=== PATIENT | male | born 1960 | race Caucasian/White ===

== ENCOUNTER 2021-01-27 21:21 | Inpatient (IN) | payer MEDICAID, OTHER ==
[~2021-01-27] VITALS: Ht 190.5 cm; Wt 84.7 kg
[2021-01-27 21:25] VITALS: BP 162/81
--- NOTE | 2021-01-27 21:29 | NUR ---
pt. arrived on unit by EMS from [facility] at 2119. Pt. is A&Ox4, on room air and is very pleasant. Call light is within reach with bed in lowest position. Pt. is able to ambulate ad rosibel to the bathroom without any difficulty. Will continue to monitor.
[2021-01-27] MEDS ORDERED: ONDANSETRON PF 4 MG/2 ML VIAL. IVP PRN (22:30)
[2021-01-27] MEDS ORDERED: ATOR20TA PO (22:34)
[2021-01-27] MEDS ORDERED: ASPI-630 PO (22:34)
[2021-01-27] MEDS ORDERED: CYCL10TA2 PO (22:34)
[2021-01-27 23:00] VITALS: BP 116/53
[2021-01-28] MEDS: PIPERACILLIN/TAZOBACTAM 3.375 GM in IV NORMAL SALINE 50ML 50 ML IV SCH ×4 (00:31→17:06)
[2021-01-28] MEDS: VANCOMYCIN PER PHARMACY MC PRN ×2 (02:04→14:32)
--- NOTE | 2021-01-28 02:05 | NUR ---
Pharmacy Vancomycin Dosing Note S:Consulted to monitor and dose vancomycin started 01/27/21. O:ABBEY MARISCAL is a 60 year old M with Osteomyelitis . Height: 6 feet, 3 inches Weight: 83.9 kg [place] Body Weight: 84.50 Adjusted Body Weight: 84.26 Dosing Weight: Actual Other Antibiotics: ZOSYN 3.375 GM Q6H LABS: Last BUN: 7 Last Creatinine: 1 Creatinine Clearance: 99 mL/min Last WBC: 11.5 Last Procalcitonin: Tmax (past 24 hours): Microbiology: I/O: Drug Levels: Last level: on at Last dose given 01/27/21 at 1930 Vancomycin Dosing: Loading Dose: 2000 mg x1 Dosing Weight: Actual Target Trough: 15-20 A: Based on: WT AND CRCL P: 1. Begin Vancomycin 1250 mg IV q12h 2. Follow up Trough level on 01/29/21 at 0730 3. Pharmacy will continue to monitor, follow and adjust therapy as needed. HIRAL KENNEY RPH, 01/28/21 0205 Signed: 01/28/21 at 0205 by HIRAL KENNEY RPH PHA
[2021-01-28 03:00] VITALS: BP 117/54
[2021-01-28 04:29] LABS: BASO % 0 % (0-3); EOS # 0.3 x10^3/uL (0.0-0.7); EOS % 3 % (0-3); HEMATOCRIT 44.6 % (39.0-53.0); LYMPH # 2.5 x10^3/uL (1.0-4.8); LYMPH % 24 % (24-48); MEAN CORPUSCULAR HEMOGLOBIN 31 pg (25-35); MEAN CORPUSCULAR HGB CONC 34 g/dL (31-37); MEAN CORPUSCULAR VOLUME 91 fL (79-100); MONO # 0.8 x10^3/uL (0.0-1.1); MONO % 8 % (0-9); NEUT % 65 % (31-73); PLATELET COUNT 185 x10^3/uL (140-400); RED BLOOD COUNT 4.92 x10^6/uL (4.30-5.70); RED CELL DISTRIBUTION WIDTH 14.5 % (11.5-14.5); WHITE BLOOD COUNT 10.7 x10^3/uL (4.0-11.0)
[2021-01-28 04:48] LABS: CALCIUM 8.4 mg/dL (8.5-10.1); CREATININE 0.9 mg/dL (0.7-1.3); GFR 86.4; POTASSIUM 3.8 mmol/L (3.5-5.1)
[2021-01-28] MEDS: fentaNYL PF VIAL 100 MCG/2 ML VIAL IVP PRN (05:42)
[2021-01-28] MEDS ORDERED: PIP/TAZO PER PHARMACY MC PRN (06:00)
[2021-01-28 07:00] VITALS: BP 110/63
[2021-01-28] MEDS: VANCOMYCIN 1.25 GM in IV NORMAL SALINE 250ML 250 ML IV SCH ×2 (07:57→20:57)
[2021-01-28] MEDS: ASPIRIN CHEWABLE 81 MG TABLET. PO SCH (07:58)
[2021-01-28] MEDS: CYCLOBENZAPRINE 10 MG TABLET. PO SCH ×3 (07:58→20:57)
[2021-01-28] MEDS: ATORVASTATIN CALCIUM 20 MG TABLET PO SCH (07:58)
--- NOTE | 2021-01-28 09:50 | NUR ---
SW following. Discussed with RN, pt from home with sister, room air, cardiac diet. Wound care, ortho and ID consulted. SW will continue to follow.
[2021-01-28] MEDS: IV NORMAL SALINE 1000ML BAG 1,000 ML IV SCH ×3 (10:00→20:00)
[2021-01-28 11:00] VITALS: BP 132/76
[2021-01-28] MEDS: oxyCODONE IR 5 MG TABLET PO PRN ×2 (11:40→17:06)
--- NOTE | 2021-01-28 12:24 | HP ---
ADMIT DATE: 01/28/2021 HISTORY OF PRESENT ILLNESS: The patient is a 60-year-old male patient who presented with pain and swelling of his right big toe after his sandals caught on a tree. He stated my sandals got caught and when I pulled my foot backward, my toe bend in opposite direction and he felt that it might have been broken. He is reportedly taking ibuprofen with little pain relief. The pain is worse with ambulation. The patient denied any fever. The patient is known to have right middle cerebral artery territory infarct with left-sided hemiplegia. He has also poor memory, chronic migraine, and hyperlipidemia. He was extensively evaluated in the Emergency Room of [facility] where he has had lab work as well as x-ray and apparently the x-ray showed that he has osteomyelitis and therefore, the patient was transferred to [facility] to consult the Infectious Disease as well as the orthopedic surgeon. We did start him on antibiotic in the form of vancomycin and Zosyn. PAST MEDICAL HISTORY: Significant for right middle cerebral artery territory infarct with left-sided hemiplegia. He has also migraine headache, hyperlipidemia. PAST SURGICAL HISTORY: Significant for tonsillectomy and adenoidectomy. ALLERGIES: He has no known drug allergies. MEDICATIONS: He is on atorvastatin, ibuprofen and cyclobenzaprine. FAMILY HISTORY: Noncontributory. SOCIAL HISTORY: Single, never , has no children. He smokes a pack a day, does not drink alcohol or use recreational drugs. He is currently on disability since he has stroke. REVIEW OF SYSTEMS: As per history of present illness. PHYSICAL EXAMINATION: GENERAL: On arrival to the Emergency Room, he looked well and was clearly in no apparent respiratory distress. There was no pallor, jaundice, cyanosis, no thyromegaly, no jugular venous distention. No limb edema. VITAL SIGNS: Heart rate was 88, blood pressure was 179/103, temperature was 98, respiratory rate was 16 and oxygen saturation was 97%. HEAD, EYES, EARS, NOSE, AND THROAT: Normocephalic, atraumatic. NECK: Supple. HEART: Showed normal first and second heart sounds. No gallop, rub or murmur. CHEST: Clear to auscultation. No crepitation or rhonchi. ABDOMEN: Scaphoid, soft, nontender. NEUROLOGIC: He was grossly intact. LABORATORY DATA: While in the Emergency Room showed a white cell count of 11,500; hemoglobin 16.8; hematocrit 50.7; MCV 92 and platelet count 237,000 with normal manual differential. His chemistry showed a serum sodium 139, potassium 3.9, chloride 103, bicarbonate 29, anion gap of 7, BUN 7, creatinine 1. Estimated GFR was 76 mL per minute. His glucose 105, lactic acid was 1.9, calcium was 9.2. Total bilirubin, AST, ALT, alkaline phosphatase were normal. His total protein was 7.8, albumin was 3.8. X-ray of his right big toe showed that there is moderate erosion of the shaft and distal tuft of the great toe distal phalanx suggestive of osteomyelitis, soft tissue swelling of the great toe. ASSESSMENT AND PLAN: The patient was transferred to [facility] with cellulitis and osteomyelitis of his right big toe. He was started on vancomycin and Zosyn as well as morphine and IV fluid. We have consulted the Infectious Disease specialist as well as orthopedic surgeon. JAMIN/KALEIGH/BRITTANY DR: Joe TID: [id number]
[2021-01-28 15:00] VITALS: BP 115/64
--- NOTE | 2021-01-28 17:04 | NUR ---
Wound/Ostomy Care Wound Type/Assessment: Patient seen per wound care consult. See wound assessment. Patient has a trauma wound from a fall involving his slippers. Patient stated he did not get treatment for several days where he then went to [facility] and was transferred here to [facility]. ID and Ortho have been consulted, the X-ray was positive for osteo. Patient is awaiting the consult from [facility] at this time. Treatment Recommendations/Plan: Recommendations to paint with Betadine daily and cover with gauze pad and tape. Most likely where this toe is blistered and pustular it will burst and drain more. If so dressing can be changed more frequently. Dressing applied. Wound is very tender. Education provided: Patient educated on dressing changes. Offloading surface/device: N/A Recommended Referrals/Tests: ID, Ortho have been consulted. Discharge Recommendations for dressings: Dressing change instructions left in room. No other wounds noted. Bed lowered and call light in reach. Wound care will follow up with patient for reassessment and POC.
[2021-01-28 19:00] VITALS: BP 125/70
--- NOTE | 2021-01-28 22:08 | PN ---
DATE: 01/28/2021 SUBJECTIVE: The patient is resting, slightly propped up in bed in no apparent distress. On questioning him, he continued to have pain in his right big toe. This is worsened on when he walks around and the pain is much less when he is at rest. Denied any chills, rigors or fever. PHYSICAL EXAMINATION: GENERAL: When I examined him, he looked well and was clearly in no apparent respiratory distress. No pallor, jaundice, cyanosis, or thyromegaly. No jugular distention. No lower limb edema. VITAL SIGNS: His heart rate was 59, blood pressure was 110/63, temperature 97.8, respiratory rate was 18 and oxygen saturation was 97%. The rest of the clinical exam is stable. FOOT: His right big toe is swollen, red and tender. LABORATORY DATA: His lab work this morning showed a white cell count of 10,700, hemoglobin 15, hematocrit 44, MCV 91, and platelet count of 185,000 with normal manual differential. His serum sodium 141, potassium 3.8, chloride 106, bicarbonate 26, anion gap of 9, BUN 9, creatinine 0.9. Estimated GFR is 86 mL per minute. His glucose 133, calcium was 8.4 and C-reactive protein was 3. ASSESSMENT: 1. Cellulitis and osteomyelitis of the right big toe. 2. Hyperlipidemia. 3. Right middle cerebral artery territory infarct with left-sided hemiplegia, memory impairment, chronic back pain. PLAN: To continue with IV antibiotic. Continue with pain management. I added oxycodone 5 mg every 4 hours as needed. JAMIN/BRANDY DR: JAMIN/peter TID: [id number]
[2021-01-28 23:00] VITALS: BP 135/75
[2021-01-29] MEDS: PIPERACILLIN/TAZOBACTAM 3.375 GM in IV NORMAL SALINE 50ML 50 ML IV SCH ×4 (00:38→17:21)
--- NOTE | 2021-01-29 01:59 | CONS ---
DATE OF CONSULTATION: 01/28/2021 REFERRING PHYSICIAN: Dr. Gordon. REASON FOR CONSULTATION: Right toe osteomyelitis. HISTORY OF PRESENT ILLNESS: A 60-year-old male with history of CVA, chronic migraine, DJD, smoking, presented to [facility] on 01/27/2021 with worsening right great toe swelling, pain, drainage. The patient sustained an initial injury after getting his sandal caught on a tree. The patient started having swelling and pain. He took care of it at home by soaking it in warm water. He also took ibuprofen with little pain relief. It started getting worse with ambulation. He denies any fevers, chills, nausea, vomiting, diarrhea, abdominal pain. Denies being on any antibiotics prior to admission. White count was reported around 11.5. Lactate was normal. Blood cultures were done. The patient received a dose of vancomycin and Rocephin. X-ray of the right foot showed moderate erosion of the shaft and distal tuft of the right great toe, distal phalanx suggestive of osteomyelitis, soft tissue swelling of the great toe. The patient was transferred to [facility] for further evaluation and treatment. The patient is currently on IV vancomycin and Zosyn. ID consultation has been requested for antibiotic management. Today, the patient states he started having spontaneous drainage from the nail bed of the right great toe, still has pain and swelling, redness, which has not improved. Denies any other complaints. PAST MEDICAL HISTORY: Hyperlipidemia, CVA, chronic migraines, chronic neck pain which he attributes retention. PAST SURGICAL HISTORY: Tonsillectomy. SOCIAL HISTORY: Positive for smoking. Alcohol none. Lives with her sister and her boyfriend, has a dog. ALLERGIES: No known drug allergies. CURRENT MEDICATIONS: IV vancomycin and Zosyn. Other medications reviewed in medication list. PHYSICAL EXAMINATION: VITAL SIGNS: Temperature 97.8, pulse 59, respiratory rate 18, blood pressure 110/63, oxygen saturation 97% on room air. GENERAL: Alert, oriented x 3, pleasant male lying in bed comfortably, in no acute distress. HEENT: Normocephalic, atraumatic. Oral mucosa moist. NECK: Supple, no JVD. LUNGS: Clear bilaterally. No wheezing. HEART: S1, S2, no murmurs. ABDOMEN: Soft, nontender, nondistended. EXTREMITIES: Left great toe swelling, redness, purulent drainage present with tenderness, mild redness over the dorsum of the right foot. NEUROLOGIC: Alert and oriented x 3, grossly nonfocal. PSYCHIATRIC: Cooperative, appropriate mood and affect. DERMATOLOGIC: Warm, dry, no generalized rash. LABORATORY DATA: WBC 10.7, was 11.5. Hemoglobin 15, hematocrit 44.6, platelets 185. Sodium 141, potassium 3.8, chloride 106, bicarbonate 26, BUN 9, creatinine 0.9, glucose 136, calcium 8.4. IMAGING: As above. MICRO: None available at this time. IMPRESSION: 1. Right great toe infection with changes suggestive of osteomyelitis on x-ray at outside hospital. 2. Mild leukocytosis. 3. Mild right foot cellulitis. 4. Hyperlipidemia. 5. History of cerebrovascular accident. 6. History of chronic migraine. 7. History of smoking. RECOMMENDATIONS: 1. Continue IV vancomycin and Zosyn. 2. Monitor renal functions closely. Pharmacy to assist with vancomycin dosing. 3. Orthopedics has been consulted. 4. Continue local wound care as directed. 5. Follow up labs and cultures. 6. Continue supportive care. 7. Follow up blood culture results from [facility]. Thank you for allowing me to participate in this patient's care. If you have any questions, do not hesitate to contact me. DEJAN/VA KATHLEEN: Luis TID: [id number]
[2021-01-29 03:00] VITALS: BP 119/62
[2021-01-29] MEDS: IV NORMAL SALINE 1000ML BAG 1,000 ML IV SCH ×2 (06:00→16:00)
[2021-01-29 07:00] VITALS: BP 119/68
[2021-01-29] MEDS: ASPIRIN CHEWABLE 81 MG TABLET. PO SCH (08:11)
[2021-01-29] MEDS: oxyCODONE IR 5 MG TABLET PO PRN ×2 (08:11→22:18)
[2021-01-29] MEDS: ATORVASTATIN CALCIUM 20 MG TABLET PO SCH (08:11)
[2021-01-29] MEDS: CYCLOBENZAPRINE 10 MG TABLET. PO SCH ×3 (08:11→22:13)
[2021-01-29] MEDS: VANCOMYCIN 1.25 GM in IV NORMAL SALINE 250ML 250 ML IV SCH (08:12)
[2021-01-29 09:19] LABS: VANC TR 12.1 mcg/mL (10.0-20.0)
[2021-01-29 10:19] LABS: ALBUMIN 3.2 g/dL (3.4-5.0); ALBUMIN/GLOBULIN RATIO 1.1 (1.0-1.7); CALCIUM 8.5 mg/dL (8.5-10.1); GFR 76.5; POTASSIUM 3.9 mmol/L (3.5-5.1); TOTAL BILIRUBIN 0.5 mg/dL (0.2-1.0); TOTAL PROTEIN 6.2 g/dL (6.4-8.2)
--- NOTE | 2021-01-29 10:41 | NUR ---
SW following. Discussed with RN, pt from home with sister, room air, cardiac diet. ID awaiting wound cultures. Currently on IV abx. SW will continue to follow.
[2021-01-29 11:00] VITALS: BP 144/75
[2021-01-29] MEDS: VANCOMYCIN PER PHARMACY MC PRN ×2 (11:31→11:42)
--- NOTE | 2021-01-29 11:41 | NUR ---
Pharmacy Vancomycin Dosing Note S: Consulted to monitor and dose vancomycin started 01/27/21. O: ABBEY MARISCAL is a 60 year old M with Osteomyelitis Other Antibiotics: ZOSYN 3.375 GM Q6H LABS: Last BUN: 9 Last Creatinine: 1 Creatinine Clearance: 96 mL/min Last WBC: 10.7 Last Procalcitonin: Tmax (past 24 hours): 97.7 Microbiology: - I/O: 560/- Drug Levels: Last Trough level: 12.1 on 01/29/21 at 0745 Last dose given 01/29/21 at 0812 Vancomycin Dosing: Dosing Weight: Actual Target Trough: 15-20 A: Based on: trough P: 1. Increase Vancomycin 1500 mg IV q12h 2. Follow up Trough level 01/31 @0730 3. Pharmacy will continue to monitor, follow and adjust therapy as needed. Erika Arango [facility], 01/29/21 114
--- NOTE | 2021-01-29 13:21 | PDOC ---
Infectious Disease Note Subjective: Subjective Patient complains of rash which started in the right lower extremity Also has some over the upper extremity Right big toe remains unchanged Denies fever, nausea, vomiting, shortness of breath, diarrhea, abdominal pain, rash Otherwise as above Vital Signs: Vital Signs Vital Signs Date Time Temp Pulse Resp B/P (MAP) Pulse Ox O2 Delivery O2 Flow Rate FiO2 01/29/21 11:00 98.1 65 17 144/75 (98) 98 Room Air 98.1 Physical Exam: PHYSICAL EXAM GENERAL: Alert, oriented x 3, pleasant male lying in bed comfortably, in no acute distress. HEENT: Normocephalic, atraumatic. Oral mucosa moist. NECK: Supple, no JVD. LUNGS: Clear bilaterally. No wheezing. HEART: S1, S2, no murmurs. ABDOMEN: Soft, nontender, nondistended. EXTREMITIES: Left great toe swelling, redness, purulent drainage present with tenderness, mild redness over the dorsum of the right foot. NEUROLOGIC: Alert and oriented x 3, grossly nonfocal. PSYCHIATRIC: Cooperative, appropriate mood and affect. DERMATOLOGIC: Warm, dry,rash noted Medications: Inpatient Meds: Medications reviewed. Labs: Lab Laboratory Tests Test 01/29/21 07:45 Sodium Level 138 mmol/L (136-145) Potassium Level 3.9 mmol/L (3.5-5.1) Chloride Level 103 mmol/L (98-107) Carbon Dioxide Level 25 mmol/L (21-32) Anion Gap 10 (6-14) Blood Urea Nitrogen 9 mg/dL (8-26) Creatinine 1.0 mg/dL (0.7-1.3) Estimated GFR (Cockcroft-Gault) 76.5 BUN/Creatinine Ratio 9 (6-20) Glucose Level 111 mg/dL (70-99) Calcium Level 8.5 mg/dL (8.5-10.1) Total Bilirubin 0.5 mg/dL (0.2-1.0) Aspartate Amino Transf (AST/SGOT) 16 U/L (15-37) Alanine Aminotransferase (ALT/SGPT) 14 U/L (16-63) Alkaline Phosphatase 67 U/L (46-116) Total Protein 6.2 g/dL (6.4-8.2) Albumin 3.2 g/dL (3.4-5.0) Albumin/Globulin Ratio 1.1 (1.0-1.7) Vancomycin Level Trough 12.1 mcg/mL (10.0-20.0) Vancomycin Last Dose Date 01-28-21 Vancomycin Last Dose Time 1999 Objective: Assessment: 1. Right great toe infection with changes suggestive of osteomyelitis on x-ray at outside hospital. 2. Mild leukocytosis. 3. Mild right foot cellulitis. 4. Hyperlipidemia. 5. History of cerebrovascular accident. 6. History of chronic migraine. 7. History of smoking. 8. Rash possibly drug induced Plan: Plan of Care 1. Continue Zosyn. 2. DC IV vancomycin start daptomycin 3. Orthopedics has been consulted. Evaluation still pending per team.Will likely need I&D 4. Continue local wound care as directed. 5. Follow up labs and cultures. 6. Continue supportive care. 7. Follow up blood culture results from [facility] negative so far Discussed with nursing staff YESSENIA VILLALTA MD Jan 29, 2021 13:21
[2021-01-29 15:00] VITALS: BP 158/79
[2021-01-29] MEDS: DAPTOmycin (GENERIC) IVPB 510 MG in IV NORMAL SALINE 50ML 50 ML IV SCH (16:21)
[2021-01-29 19:00] VITALS: BP 132/78
[2021-01-29] MEDS ORDERED: VANCOMYCIN 1.5 GM in IV NORMAL SALINE 500ML BAG 500 ML IV SCH (20:00)
[2021-01-29] MEDS: LACTOBACILLUS RHAMNOSUS GG 1 CAPSULE. PO SCH (22:13)
[2021-01-29 23:00] VITALS: BP 137/80
[2021-01-30] MEDS: PIPERACILLIN/TAZOBACTAM 3.375 GM in IV NORMAL SALINE 50ML 50 ML IV SCH ×4 (00:10→17:55)
[2021-01-30] MEDS: IV NORMAL SALINE 1000ML BAG 1,000 ML IV SCH ×2 (02:00→12:00)
[2021-01-30 03:22] VITALS: BP 116/71
--- NOTE | 2021-01-30 04:54 | PN ---
DATE: 01/29/2021 SUBJECTIVE: The patient is sitting at the edge of the bed. Continued complaining of throbbing pain in his right big toe whenever he stands or walks. Other than that, he denied any other complaint. In particular, denied any chills, rigors or fever. PHYSICAL EXAMINATION: When I examined him, he looked well and was clearly in no apparent respiratory distress. His heart rate was 61, blood pressure was 119/68, temperature 97.9, respiratory rate was 18 and oxygen saturation was 98%. The rest of the exam stable. ASSESSMENT: 1. Right big toe infection with changes suggestive of osteomyelitis on x-ray at [facility]. 2. Mild right foot cellulitis. 3. Hyperlipidemia. 4. History of cerebrovascular accident. 5. Chronic migraine. 6. Nicotine addiction. PLAN: To continue with IV Zosyn and vancomycin. Await evaluation by the orthopedic surgeon to see whether the patient needs amputation. MONIKA DR: Joe TID: [id number]
[2021-01-30 07:00] VITALS: BP 124/76
--- NOTE | 2021-01-30 07:37 | PDOC ---
Infectious Disease Note Subjective: Subjective Patient feels the same Rash has improved Right big toe remains unchanged Denies fever, nausea, vomiting, shortness of breath, diarrhea, abdominal pain, rash Otherwise as above Vital Signs: Vital Signs Vital Signs Date Time Temp Pulse Resp B/P (MAP) Pulse Ox O2 Delivery O2 Flow Rate FiO2 01/30/21 03:22 98.6 67 20 116/71 (86) 96 Room Air 98.6 Physical Exam: PHYSICAL EXAM GENERAL: Alert, oriented x 3, pleasant male lying in bed comfortably, in no acute distress. HEENT: Normocephalic, atraumatic. Oral mucosa moist. NECK: Supple, no JVD. LUNGS: Clear bilaterally. No wheezing. HEART: S1, S2, no murmurs. ABDOMEN: Soft, nontender, nondistended. EXTREMITIES: Left great toe swelling, redness, purulent drainage present with tenderness, mild redness over the dorsum of the right foot. NEUROLOGIC: Alert and oriented x 3, grossly nonfocal. PSYCHIATRIC: Cooperative, appropriate mood and affect. DERMATOLOGIC: Warm, dry,rash noted Medications: Inpatient Meds: Medications reviewed. Labs: Lab Laboratory Tests Test 01/29/21 07:45 Sodium Level 138 mmol/L (136-145) Potassium Level 3.9 mmol/L (3.5-5.1) Chloride Level 103 mmol/L (98-107) Carbon Dioxide Level 25 mmol/L (21-32) Anion Gap 10 (6-14) Blood Urea Nitrogen 9 mg/dL (8-26) Creatinine 1.0 mg/dL (0.7-1.3) Estimated GFR (Cockcroft-Gault) 76.5 BUN/Creatinine Ratio 9 (6-20) Glucose Level 111 mg/dL (70-99) Calcium Level 8.5 mg/dL (8.5-10.1) Total Bilirubin 0.5 mg/dL (0.2-1.0) Aspartate Amino Transf (AST/SGOT) 16 U/L (15-37) Alanine Aminotransferase (ALT/SGPT) 14 U/L (16-63) Alkaline Phosphatase 67 U/L (46-116) Total Protein 6.2 g/dL (6.4-8.2) Albumin 3.2 g/dL (3.4-5.0) Albumin/Globulin Ratio 1.1 (1.0-1.7) Vancomycin Level Trough 12.1 mcg/mL (10.0-20.0) Vancomycin Last Dose Date 01-28-21 Vancomycin Last Dose Time 1999 Objective: Assessment: 1. Right great toe infection with changes suggestive of osteomyelitis on x-ray at outside hospital. 2. Mild leukocytosis. 3. Mild right foot cellulitis. 4. Hyperlipidemia. 5. History of cerebrovascular accident. 6. History of chronic migraine. 7. History of smoking. 8. Rash possibly drug induced Plan: Plan of Care Continue Zosyn and daptomycin Orthopedics has been consulted. Evaluation still pending per team Agree with vascular consult Continue local wound care as directed. Follow up labs and cultures. Follow up blood culture results from [facility] negative so far Discussed with nursing staff YESSENIA VILLALTA MD Jan 30, 2021 07:37
[2021-01-30 07:46] LABS: HEMATOCRIT 43.4 % (39.0-53.0); HEMOGLOBIN 14.6 g/dL (13.0-17.5); RED BLOOD COUNT 4.78 x10^6/uL (4.30-5.70); RED CELL DISTRIBUTION WIDTH 14.5 % (11.5-14.5); WHITE BLOOD COUNT 9.9 x10^3/uL (4.0-11.0)
[2021-01-30 08:01] LABS: CALCIUM 8.3 mg/dL (8.5-10.1); GFR 76.5; POTASSIUM 3.5 mmol/L (3.5-5.1)
[2021-01-30] MEDS: LACTOBACILLUS RHAMNOSUS GG 1 CAPSULE. PO SCH ×2 (08:53→20:29)
[2021-01-30] MEDS: MULTIVITAMIN with MINERAL TABLET. PO SCH (08:53)
[2021-01-30] MEDS: ASPIRIN CHEWABLE 81 MG TABLET. PO SCH (08:54)
[2021-01-30] MEDS: ATORVASTATIN CALCIUM 20 MG TABLET PO SCH (08:54)
[2021-01-30] MEDS: CYCLOBENZAPRINE 10 MG TABLET. PO SCH ×3 (08:54→20:28)
--- NOTE | 2021-01-30 09:19 | NUR ---
Consult called for Dr. Warner.
--- NOTE | 2021-01-30 09:54 | PN ---
DATE: 01/30/2021 SUBJECTIVE: The patient is sitting at the edge of the bed, eating breakfast comfortably, in no apparent distress. He states his pain in his right big toe is much less. Denied any chills, rigors or fever. The nursing staff did not voice any concerns, stated that he had an uneventful night. He was seen in consultation by the infectious disease specialist, they are awaiting evaluation by the orthopedic surgeon. OBJECTIVE: GENERAL: When I examined him, he looked well and was clearly in no apparent respiratory distress. No pallor, jaundice, cyanosis, or thyromegaly. No jugular venous distention. No limb edema. VITAL SIGNS: His heart rate was 61, blood pressure is 124/76, temperature was 98.2, respiratory rate was 18 and oxygen saturation was 98%. HEAD, EYES, EARS, NOSE AND THROAT: Normocephalic, atraumatic. NECK: Supple. HEART: Showed normal first and second heart sounds, no gallop, murmur. CHEST: Clear to auscultation, no crepitation or rhonchi. ABDOMEN: Distended, soft, nontender. NEUROLOGIC: He was grossly intact. EXTREMITIES: His right big toe was red and swollen covered with dressing. His intake over the last 24 hours was 560, no output was recorded. LABORATORY AND DIAGNOSTIC DATA: His lab work this morning showed a white cell count 9.9, hemoglobin 14.6, hematocrit 43, MCV 91, and platelet count of 188,000. His sedimentation rate was 3 mm per hour. His serum sodium was 141, potassium 3.5, chloride 104, bicarbonate 27, anion gap of 10, BUN 9, creatinine 1, estimated GFR was 76 mL per minute, his glucose was 100 and calcium was 8.3. Toxic screen showed his vancomycin trough level was 12, which is well within normal range. The Gram stain swabs from the right big toe showed gram-positive cocci, the culture is still pending. ASSESSMENT: 1. Right big toe infection with changes suggestive of osteomyelitis on x-ray at [facility]. 2. Mild right foot cellulitis. 3. Hyperlipidemia. 4. History of cerebrovascular accident. 5. Chronic migraines. 6. Nicotine addiction. 7. Memory impairment. PLAN: To continue with the IV Zosyn and vancomycin. Await the evaluation by the orthopedic surgeon. I will consult also the vascular surgeon, although the dorsalis pedis and tibialis posterior are easily palpable. SALBADOR DR: Joe TID: [id number]
[2021-01-30] MEDS: oxyCODONE IR 5 MG TABLET PO PRN (10:00)
--- NOTE | 2021-01-30 10:04 | PDOC2 ---
CONSULT Date of Consult Date of Consult DATE: 01/30/21 TIME: 09:59 Reason for Consult Reason for Consult: Right first toe infection History of Present Illness Reason for Visit: This a pleasant 60-year-old male who was admitted 3 days ago with a right first toe infection. For some reason we were not consulted until this morning. He states that he hit his toe on a step causing trauma approximately 2 weeks ago. He is not diabetic. He continued to injure the toe several more times which I believe contributed to infection. He also has toenail deformity and frequent ingrown toenails which also contributes to his current problem. Past Medical History Cardiovascular: HTN, Hyperlipidemia Pulmonary: COPD Past Surgical History Past Surgical History: No pertinent history Family History Family History: Coronary Artery Disease, High Cholestrol, Hypertension Social History <1 pack per day Current Medications Current Medications Current Medications Fentanyl Citrate (Fentanyl 2ml Vial) 50 mcg PRN Q4HRS PRN IVP SEVERE PAIN 7-10 Last administered on 01/28/21at 05:42; Start 01/27/21 at 22:30 Ondansetron HCl (Zofran) 4 mg PRN Q4HRS PRN IVP NAUSEA/VOMITING 1ST CHOICE; Start 01/27/21 at 22:30 Sodium Chloride 1,000 ml @ 100 mls/hr Q10H IV ; Start 01/28/21 at 00:00 Vancomycin HCl (Vanco Per Pharmacy) 1 each PRN DAILY PRN MC SEE COMMENTS Last administered on 01/29/21at 11:42; Start 01/28/21 at 09:00; Stop 01/29/21 at 14:06; Status DC Piperacillin Sod/ Tazobactam Sod (Zosyn Per Pharmacy) 1 each PRN DAILY PRN MC SEE COMMENTS; Start 01/28/21 at 06:00 Piperacillin Sod/ Tazobactam Sod 3.375 gm/Sodium Chloride 50 ml @ 100 mls/hr Q6HRS IV Last administered on 01/30/21at 05:44; Start 01/28/21 at 00:00 Vancomycin HCl 1.25 gm/Sodium Chloride 250 ml @ 167 mls/hr Q12H IV Last administered on 01/29/21at 08:12; Start 01/28/21 at 08:00; Stop 01/29/21 at 11:40; Status DC Vancomycin HCl (Vancomycin Trough Level) 1 each 1X ONCE MC Last administered on 01/29/21at 07:30; Start 01/29/21 at 07:30; Stop 01/29/21 at 07:31; Status DC Aspirin (Aspirin Chewable) 81 mg DAILY PO Last administered on 01/30/21at 08:54; Start 01/28/21 at 09:00 Atorvastatin Calcium (Lipitor) 20 mg DAILY PO Last administered on 01/30/21at 08:54; Start 01/28/21 at 09:00 Cyclobenzaprine HCl (Flexeril) 10 mg TID PO Last administered on 01/30/21at 08:54; Start 01/28/21 at 09:00 Oxycodone HCl (Roxicodone) 5 mg PRN Q4HRS PRN PO PAIN Last administered on 01/29/21at 22:18; Start 01/28/21 at 11:15 Lactobacillus Rhamnosus (Culturelle) 1 cap BID PO Last administered on 01/30/21at 08:53; Start 01/29/21 at 21:00 Vancomycin HCl 1.5 gm/Sodium Chloride 500 ml @ 250 mls/hr Q12H IV ; Start 01/29/21 at 20:00; Stop 01/29/21 at 14:04; Status DC Vancomycin HCl (Vancomycin Trough Level) 1 each 1X ONCE MC ; Start 01/31/21 at 07:30; Stop 01/29/21 at 14:06; Status DC Multivitamins (Thera M Plus) 1 tab DAILY PO Last administered on 01/30/21at 08:53; Start 01/30/21 at 09:00 Daptomycin 510 mg/ Sodium Chloride 50 ml @ 100 mls/hr Q24H IV Last administered on 01/29/21at 16:21; Start 01/29/21 at 16:00 Active Scripts Active Reported Cyclobenzaprine Hcl 10 Mg Tablet 20 Mg PO TID Aspirin 81 Mg Tab.chew 1 Tab PO DAILY Lipitor (Atorvastatin Calcium) 20 Mg Tablet 1 Tab PO DAILY Allergies Allergies: Coded Allergies: No Known Drug Allergies (Unverified , 01/27/21) verified with pt. and sister ROS Skin: Yes Other (Right first toe infection) Physical Exam General: Alert, Oriented X3, Cooperative, No acute distress HEENT: Atraumatic, PERRLA, EOMI Lungs: Clear to auscultation, Normal air movement Heart: Regular rate, Normal S1, Normal S2, No murmurs Abdomen: Normal bowel sounds, Soft, No tenderness Extremities: No clubbing, No cyanosis, Normal pulses Skin: Other (Right first toe paronychial infection with focal cellulitis, evidence of ingrown toenail, positive purulent drainage and swelling) Neuro: Normal speech, Strength at 5/5 X4 ext, Sensation intact, Cranial nerves 3-12 NL Psych/Mental Status: Mental status NL, Mood NL MUSCULOSKELETAL: No swelling, No muscular tenderness noted, Full range of motion without pain Vitals VITALS Vital Signs Date Time Temp Pulse Resp B/P (MAP) Pulse Ox O2 Delivery O2 Flow Rate FiO2 01/30/21 07:00 98.2 61 18 124/76 (92) 98 Room Air 98.2 Labs Labs Laboratory Tests Test 01/28/21 11:10 01/29/21 07:45 01/30/21 06:25 Erythrocyte Sedimentation Rate 3 (0-15) Sodium Level 138 mmol/L (136-145) 141 mmol/L (136-145) Potassium Level 3.9 mmol/L (3.5-5.1) 3.5 mmol/L (3.5-5.1) Chloride Level 103 mmol/L (98-107) 104 mmol/L (98-107) Carbon Dioxide Level 25 mmol/L (21-32) 27 mmol/L (21-32) Anion Gap 10 (6-14) 10 (6-14) Blood Urea Nitrogen 9 mg/dL (8-26) 9 mg/dL (8-26) Creatinine 1.0 mg/dL (0.7-1.3) 1.0 mg/dL (0.7-1.3) Estimated GFR (Cockcroft-Gault) 76.5 76.5 BUN/Creatinine Ratio 9 (6-20) Glucose Level 111 mg/dL (70-99) 100 mg/dL (70-99) Calcium Level 8.5 mg/dL (8.5-10.1) 8.3 mg/dL (8.5-10.1) Total Bilirubin 0.5 mg/dL (0.2-1.0) Aspartate Amino Transf (AST/SGOT) 16 U/L (15-37) Alanine Aminotransferase (ALT/SGPT) 14 U/L (16-63) Alkaline Phosphatase 67 U/L (46-116) Total Protein 6.2 g/dL (6.4-8.2) Albumin 3.2 g/dL (3.4-5.0) Albumin/Globulin Ratio 1.1 (1.0-1.7) Vancomycin Level Trough 12.1 mcg/mL (10.0-20.0) Vancomycin Last Dose Date 01-28-21 Vancomycin Last Dose Time 1999 White Blood Count 9.9 x10^3/uL (4.0-11.0) Red Blood Count 4.78 x10^6/uL (4.30-5.70) Hemoglobin 14.6 g/dL (13.0-17.5) Hematocrit 43.4 % (39.0-53.0) Mean Corpuscular Volume 91 fL (79-100) Mean Corpuscular Hemoglobin 31 pg (25-35) Mean Corpuscular Hemoglobin Concent 34 g/dL (31-37) Red Cell Distribution Width 14.5 % (11.5-14.5) Platelet Count 188 x10^3/uL (140-400) Laboratory Tests Test 01/30/21 06:25 White Blood Count 9.9 x10^3/uL (4.0-11.0) Red Blood Count 4.78 x10^6/uL (4.30-5.70) Hemoglobin 14.6 g/dL (13.0-17.5) Hematocrit 43.4 % (39.0-53.0) Mean Corpuscular Volume 91 fL (79-100) Mean Corpuscular Hemoglobin 31 pg (25-35) Mean Corpuscular Hemoglobin Concent 34 g/dL (31-37) Red Cell Distribution Width 14.5 % (11.5-14.5) Platelet Count 188 x10^3/uL (140-400) Sodium Level 141 mmol/L (136-145) Potassium Level 3.5 mmol/L (3.5-5.1) Chloride Level 104 mmol/L (98-107) Carbon Dioxide Level 27 mmol/L (21-32) Anion Gap 10 (6-14) Blood Urea Nitrogen 9 mg/dL (8-26) Creatinine 1.0 mg/dL (0.7-1.3) Estimated GFR (Cockcroft-Gault) 76.5 Glucose Level 100 mg/dL (70-99) Calcium Level 8.3 mg/dL (8.5-10.1) Assessment/Plan Assessment/Plan Right first toe paronychial infection--patient sustained trauma to the right first toe which has festered into a infection. He has significant purulent drainage and cellulitis focal to the toe. I recommended a right first toe debridement with possible amputation. I am not sure why we were consulted 3 days after the patient's admission. The patient ate breakfast this morning. In any regard we have added him onto the schedule tomorrow morning for treatment. I discussed this with the patient and the patient's sister over the telephone. All questions were answered to their satisfaction. He is agreeable to the plan. I also discussed the plan with the nursing staff. He will continue broad- spectrum IV antibiotic therapy at this time and local wound care. Ivanna Alfaro DO, IVANNA NUNES DO Jan 30, 2021 10:04
--- NOTE | 2021-01-30 10:06 | NUR ---
Dr. Alfaro in to see pt and assess right first toe. Pt will go for a right first toe debridement with possible amputation. Pt to be NPO after MN
[2021-01-30 10:29] VITALS: BP 131/77
--- NOTE | 2021-01-30 11:05 | NUR ---
Covid PCR obtain at 1045 and sent to lab. Wound to right toe was cleaned with NS and covered with 4x4 soaked in betadine, dry 4x4 then wrapped with kerlix.
--- NOTE | 2021-01-30 12:19 | NUR ---
Order per Dr. Gordon to DC NS IV infusion
[2021-01-30 14:00] VITALS: BP 120/70
[2021-01-30] MEDS: DAPTOmycin (GENERIC) IVPB 510 MG in IV NORMAL SALINE 50ML 50 ML IV SCH (16:45)
[2021-01-30 19:00] VITALS: BP 126/72
--- NOTE | 2021-01-30 21:57 | PDOC ---
Provider Note Date of Service: DATE: 01/30/21 I came to see the patient with regards to consultation with regards to osteomyelitis. I had seen the vascular surgery had already seen the patient is addressing the problem for which I consulted. At this time I will sign off and have not seen the patient. If there is other issues I am happy to evaluate the patient at your discretion. Justifications for Admission Other Justification BENITA LIEBERMAN DO Jan 30, 2021 9:57 pm
[2021-01-30 23:00] VITALS: BP 139/78
[2021-01-31] MEDS: PIPERACILLIN/TAZOBACTAM 3.375 GM in IV NORMAL SALINE 50ML 50 ML IV SCH ×5 (00:28→23:56)
[2021-01-31 03:12] VITALS: BP 142/82
[2021-01-31] MEDS ORDERED: LIDOCAINE 2% PF 5 ML VIAL. ONE (05:59)
[2021-01-31] MEDS ORDERED: PROPOFOL 10 MG/ML (20ML) VIAL. IV ONE (05:59)
[2021-01-31] MEDS ORDERED: fentaNYL PF VIAL 100 MCG/2 ML VIAL ONE ×2 (05:59→08:04)
[2021-01-31] MEDS ORDERED: IV RINGERS,LACTATED 1000ML 1,000 ML IV SCH (07:30)
[2021-01-31] MEDS ORDERED: fentaNYL PF VIAL 100 MCG/2 ML VIAL IVP PRN ×2 (07:30)
[2021-01-31] MEDS: CYCLOBENZAPRINE 10 MG TABLET. PO SCH ×3 (07:30→20:29)
[2021-01-31] MEDS ORDERED: PROCHLORPERAZINE 10 MG/2 ML VIAL. IVP PRN (07:30)
[2021-01-31] MEDS ORDERED: ONDANSETRON PF 4 MG/2 ML VIAL. ONE (07:30)
[2021-01-31] MEDS ORDERED: HYDROmorphone 2 MG/ML VIAL IVP PRN (07:30)
[2021-01-31] MEDS: ASPIRIN CHEWABLE 81 MG TABLET. PO SCH (07:30)
[2021-01-31] MEDS ORDERED: MORPHINE SULFATE 2 MG/ML VIAL. IVP PRN (07:30)
--- NOTE | 2021-01-31 07:51 | PDOC4 ---
Operative Note Operative Note Operative Report Pre-op:right 1st toe infection with necrotic wound Post-op: right 1st toe infection with abscess and gangrene Surgeon: Dr. Ariela Warner Operation: right 1st toe closed amputation Anesthesia: general Blood loss: 10ml ARIELA WARNER MD Jan 31, 2021 07:50
[2021-01-31] MEDS: fentaNYL PF VIAL 100 MCG/2 ML VIAL IVP PRN ×3 (08:21→17:45)
--- NOTE | 2021-01-31 08:40 | OP ---
DATE OF SURGERY: 01/31/2021 SURGEON: Noemy Warner MD. GOLF BALL WINDER: None. ANESTHESIA USED: General anesthesia. PREOPERATIVE DIAGNOSIS: Right first toe severe infection with a necrotic wound and drainage. POSTOPERATIVE DIAGNOSIS: Right first toe infection with abscess and necrotic wound. OPERATION PERFORMED: Right first toe amputation with primary closure. BLOOD LOSS: Approximately 10 mL. INDICATIONS: The patient is a 60-year-old male who injured his right first toe a few weeks ago. He has developed a necrotic open wound, infection with purulent drainage. X-rays also suggest osteomyelitis of the tip of the toe. I recommend exploration of the wound, but likely primary amputation with the significant infection. Informed consent was obtained including the risks of bleeding, infection, and need for further surgical debridement or amputation in the future if this does not heal and need for IV and oral antibiotics. DESCRIPTION OF PROCEDURE: The patient was brought to the operating room and placed on table in supine position. He received general anesthesia and monitored throughout the case by the anesthesiologist. His right foot and ankle were circumferentially prepped and draped in normal sterile fashion. I explored the right first toe distal wound. There were copious amounts of thick drainage from the wound, which was sent for culture and the wound was down to the bone, clinically suggestive of osteomyelitis, which correlates with the x-ray. There was no way to salvage the distal toe. Therefore, at the mid toe, I made a fishmouth type incision, dissected down through the subcutaneous tissue, tendons down to the bone and transected the bone with a bone cutter and removed the toe. The bone was brought back within the wound with a rongeur. All tendons were removed. We did not have to expose or remove the metatarsal head. There were no signs of infection at the base of the wound and there was no extending erythema into the foot. I irrigated the wound with copious amounts of antibiotic solution. There was very good bleeding throughout the wound bed, which was controlled with electrocautery. When the wound was dry, we then closed the incision with running 3-0 nylon suture. Xeroform and a sterile dressing was placed. He tolerated the surgery well with no immediate complications. SPECIMEN: Right first toe. NATHANIEL DR: Gurpreet TID: [id number]
[2021-01-31] MEDS: LACTOBACILLUS RHAMNOSUS GG 1 CAPSULE. PO SCH ×2 (08:42→20:29)
[2021-01-31] MEDS: ATORVASTATIN CALCIUM 20 MG TABLET PO SCH (08:42)
[2021-01-31] MEDS: MULTIVITAMIN with MINERAL TABLET. PO SCH (08:42)
[2021-01-31 09:00] VITALS: BP 118/70
--- NOTE | 2021-01-31 09:27 | PDOC ---
Infectious Disease Note Subjective: Subjective Patient underwent surgery this morning Denies fever, nausea, vomiting, shortness of breath, diarrhea, abdominal pain, rash Otherwise as above Vital Signs: Vital Signs Vital Signs Date Time Temp Pulse Resp B/P (MAP) Pulse Ox O2 Delivery O2 Flow Rate FiO2 01/31/21 08:21 30 95 Room Air 01/31/21 08:20 97.0 54 113/77 97.0 01/31/21 07:50 6 Physical Exam: PHYSICAL EXAM GENERAL: Alert, oriented x 3, pleasant male lying in bed comfortably, in no acute distress. HEENT: Normocephalic, atraumatic. Oral mucosa moist. NECK: Supple, no JVD. LUNGS: Clear bilaterally. No wheezing. HEART: S1, S2, no murmurs. ABDOMEN: Soft, nontender, nondistended. EXTREMITIES: Left foot dressing in place intact not taken down NEUROLOGIC: Alert and oriented x 3, grossly nonfocal. PSYCHIATRIC: Cooperative, appropriate mood and affect. DERMATOLOGIC: Warm, dry,rash noted, latter improving Medications: Inpatient Meds: Medications reviewed. Labs: Lab Laboratory Tests Test 01/30/21 10:45 01/31/21 06:35 01/31/21 06:40 SARS-CoV-2 RNA (ASHUTOSH) Negative (Negative) SARS-CoV-2 Antigen (Rapid) Negative (NEGATIVE) Creatine Kinase 442 U/L (39-308) Objective: Assessment: 1. Right great toe infection with changes suggestive of osteomyelitis on x-ray at outside hospital. January 31 2021 S/P RT 1st toe closed amputation 2. Mild leukocytosis. 3. Mild right foot cellulitis. 4. Hyperlipidemia. 5. History of cerebrovascular accident. 6. History of chronic migraine. 7. History of smoking. 8. Rash possibly drug induced Plan: Plan of Care Continue Zosyn and daptomycin Follow up labs and cultures. Local wound care as directed Follow up blood culture results from [facility] negative so far Discussed with nursing staff YESSENIA VILLALTA MD Jan 31, 2021 09:27
[2021-01-31] MEDS: MORPHINE SULFATE 4 MG/ML VIAL. IV PRN ×3 (09:54→23:47)
[2021-01-31 11:00] VITALS: BP 139/75
[2021-01-31 15:00] VITALS: BP 138/81
[2021-01-31] MEDS: oxyCODONE IR 5 MG TABLET PO PRN (17:45)
[2021-01-31] MEDS: DAPTOmycin (GENERIC) IVPB 510 MG in IV NORMAL SALINE 50ML 50 ML IV SCH (17:49)
[2021-01-31 19:23] VITALS: BP 143/81
[2021-01-31 22:44] VITALS: BP 138/77
[2021-02-01 02:57] VITALS: BP 108/65
[2021-02-01] MEDS: PIPERACILLIN/TAZOBACTAM 3.375 GM in IV NORMAL SALINE 50ML 50 ML IV SCH ×2 (05:50→11:59)
[2021-02-01] MEDS: oxyCODONE IR 5 MG TABLET PO PRN ×2 (06:11→11:57)
[2021-02-01 06:47] LABS: RED BLOOD COUNT 4.96 x10^6/uL (4.30-5.70); RED CELL DISTRIBUTION WIDTH 14.3 % (11.5-14.5); WHITE BLOOD COUNT 10.9 x10^3/uL (4.0-11.0)
[2021-02-01 07:00] VITALS: BP 122/76
[2021-02-01 07:13] LABS: ALBUMIN 3.6 g/dL (3.4-5.0); ALBUMIN/GLOBULIN RATIO 1.1 (1.0-1.7); CALCIUM 9.1 mg/dL (8.5-10.1); CREATININE 1.2 mg/dL (0.7-1.3); POTASSIUM 4.5 mmol/L (3.5-5.1); TOTAL BILIRUBIN 0.6 mg/dL (0.2-1.0)
[2021-02-01] MEDS: MULTIVITAMIN with MINERAL TABLET. PO SCH (08:08)
[2021-02-01] MEDS: ATORVASTATIN CALCIUM 20 MG TABLET PO SCH (08:08)
[2021-02-01] MEDS: ASPIRIN CHEWABLE 81 MG TABLET. PO SCH (08:08)
[2021-02-01] MEDS: LACTOBACILLUS RHAMNOSUS GG 1 CAPSULE. PO SCH (08:08)
[2021-02-01] MEDS: CYCLOBENZAPRINE 10 MG TABLET. PO SCH ×2 (08:08→13:28)
--- NOTE | 2021-02-01 10:44 | PDOC ---
Infectious Disease Note Subjective Subjective feeling good ROS ROS no n/v/d/sob Vital Sign Vital Signs Vital Signs Date Time Temp Pulse Resp B/P (MAP) Pulse Ox O2 Delivery O2 Flow Rate FiO2 02/01/21 07:00 97.8 53 18 122/76 (91) 94 Room Air 97.8 01/31/21 07:50 6 Physical Exam PHYSICAL EXAM GENERAL: Alert, oriented x 3, pleasant male lying in bed comfortably, in no acute distress. HEENT: Normocephalic, atraumatic. Oral mucosa moist. NECK: Supple, no JVD. LUNGS: Clear bilaterally. No wheezing. HEART: S1, S2, no murmurs. ABDOMEN: Soft, nontender, nondistended. EXTREMITIES: Left foot incision seen, looks good NEUROLOGIC: Alert and oriented x 3, grossly nonfocal. PSYCHIATRIC: Cooperative, appropriate mood and affect. DERMATOLOGIC: Warm, dry,rash noted, latter improving Labs Lab Laboratory Tests Test 02/01/21 05:35 02/01/21 05:45 Sodium Level 141 mmol/L (136-145) Potassium Level 4.5 mmol/L (3.5-5.1) Chloride Level 102 mmol/L (98-107) Carbon Dioxide Level 33 mmol/L (21-32) Anion Gap 6 (6-14) Blood Urea Nitrogen 9 mg/dL (8-26) Creatinine 1.2 mg/dL (0.7-1.3) Estimated GFR (Cockcroft-Gault) 62.0 BUN/Creatinine Ratio 8 (6-20) Glucose Level 90 mg/dL (70-99) Calcium Level 9.1 mg/dL (8.5-10.1) Total Bilirubin 0.6 mg/dL (0.2-1.0) Aspartate Amino Transf (AST/SGOT) 51 U/L (15-37) Alanine Aminotransferase (ALT/SGPT) 25 U/L (16-63) Alkaline Phosphatase 73 U/L (46-116) Total Protein 7.0 g/dL (6.4-8.2) Albumin 3.6 g/dL (3.4-5.0) Albumin/Globulin Ratio 1.1 (1.0-1.7) White Blood Count 10.9 x10^3/uL (4.0-11.0) Red Blood Count 4.96 x10^6/uL (4.30-5.70) Hemoglobin 15.0 g/dL (13.0-17.5) Hematocrit 45.0 % (39.0-53.0) Mean Corpuscular Volume 91 fL (79-100) Mean Corpuscular Hemoglobin 30 pg (25-35) Mean Corpuscular Hemoglobin Concent 33 g/dL (31-37) Red Cell Distribution Width 14.3 % (11.5-14.5) Platelet Count 209 x10^3/uL (140-400) Micro GRAM STAIN Final Final GRAM POSITIVE COCCI:RARE SQUAMOUS EPI CELL:MODERATE PMN (WBCs):RARE Unless otherwise specified, Testing Performed by: [address] [address] For Inquires, the Physician may contact the Microbiology department at [phone] ANAEROBIC-AEROBIC CULTURE Preliminary Preliminary MODERATE [STAPHYLOCOCCUS LUGDUNENSIS] on 01/30/21 at 1407 STAPHYLOCOCCUS LUGDUNENSIS Unless otherwise specified, Testing Performed by: [address] [address] For Inquires, the Physician may contact the Microbiology department at [phone] Objective Assessment 1. Right great toe infection with changes suggestive of osteomyelitis on x-ray at outside hospital. January 31 2021 S/P RT 1st toe closed amputation 2. Mild leukocytosis. 3. Mild right foot cellulitis. 4. Hyperlipidemia. 5. History of cerebrovascular accident. 6. History of chronic migraine. 7. History of smoking. 8. Rash possibly drug induced Plan Plan of Care d/w Dr Timmy vergara to d/c diane barrett pt to call my office for final culture results to make sure oxacillin sensitive,if not may have to change antibiotics d/w LEILA Talavera MD Feb 01, 2021 10:44
[2021-02-01] MEDS ORDERED: OXYC5CAP PO (10:50)
[2021-02-01] MEDS ORDERED: CEPH500T PO (10:52)
--- NOTE | 2021-02-01 10:53 | NUR ---
SW following. Discussed with RN, pt from home with sisters, room air, COVID-19 negative. Abx have been switched to oral. Discharge order for home with self care. RN advised no SW needs.
[2021-02-01 10:55] VITALS: BP 128/79
[2021-02-01] MEDS: MORPHINE SULFATE 4 MG/ML VIAL. IV PRN (12:02)
--- NOTE | 2021-02-01 12:22 | PDOC ---
Provider Note Date of Service: DATE: 02/01/21 TIME: 12:19 Provider Note Provider Note Vascular S: Patient seen and examined in room with Dr. Warner. No complaints. O: Awake and alert Vital signs stable, afebrile Right first toe incision dry and intact. Minimal erythema and swelling. A/P: Right first toe wound with drainage. Status post right first toe amputation with primary closure. Recommend daily dry gauze dressings. Antibiotics per infectious disease. Patient may ambulate with postop shoe. Follow-up with our office in 2 to 3 weeks. Justicifation of Admission Dx: Justifications for Admission: Justification of Admission Dx: Yes IZABELA ESCAMILLA APRN Feb 01, 2021 12:22
--- NOTE | 2021-02-01 14:58 | PN ---
DATE: 02/01/2021 SUBJECTIVE: The patient is resting up in bed in no apparent distress. He stated his pain is much better controlled as he underwent right first toe closed amputation under general anesthesia. OBJECTIVE: GENERAL: When I examined him, he looked well and was clearly in no apparent respiratory distress. No pallor, jaundice, cyanosis or thyromegaly. No jugular venous distention. No lower limb edema. VITAL SIGNS: His heart rate was 53, blood pressure was 122/76, temperature was 97.8, respiratory rate was 18 and oxygen saturation was 94% on room air. HEAD, EYES, EARS, NOSE AND THROAT: Normocephalic, atraumatic. NECK: Supple. HEART: Normal first and second heart sounds. No gallop or murmur. CHEST: Clear to auscultation. No crepitation or rhonchi. ABDOMEN: Distended, soft, nontender. NEUROLOGIC: He was grossly intact. His right foot wound is covered with dressing, is dry and intact. LABORATORY DATA: His intake and output are incompletely recorded. His lab work showed a white cell count of 10,900, hemoglobin 15, hematocrit 45, MCV 91 and platelet count 209,000. His chemistry showed a serum sodium 141, potassium 4.5, chloride 102, bicarbonate 33, anion gap of 6, BUN 9, creatinine 1.2. Estimated GFR was 62 mL/min. His glucose was 90, calcium was 9.1. Total bilirubin, AST, ALT, alkaline phosphatase were normal. Total protein 7, albumin 3.6. ASSESSMENT: Right great toe infection with changes suggestive of osteomyelitis on x-ray done at [facility], status post right first big toe closed amputation. Other medical problems include right big toe cellulitis, hypertension, history of cerebrovascular accident, chronic migraine, rash that is possibly drug induced and memory impairment. PLAN: To continue with IV antibiotic. Continue pain management. Continue with wound care. Await the evaluation by the orthopedic surgeon, Infectious Disease. JAMIN/KATIE/EILEEN DR: Joe TID: [id number]
--- NOTE | 2021-02-05 18:07 | PATHOLOGY ---
[facility] Accession Number: [id number] . 01 Material submitted: . toe - RIGHT GREAT TOE. Modifiers: right, great . 01 Clinical history: . OSTEOMYELITIS OF L GREAT TOE RIGHT GREAT TOE AMPUTATION . 02 Diagnosis: Right first toe amputation: - Ulceration of distal toe with acute and chronic cellulitis with foreign body giant cell reaction and squamous epithelial lined draining sinus, and focal underlying acute and chronic osteomyelitis. - Proximal amputation margin negative for acute cellulitis/acute osteomyelitis. (JPM:[facility]; 02/05/2021) [facility] 02/05/2021 0917 Local . 02 Electronically signed: . Anjum Anne MD, Pathologist NPI- [id number] . 01 Gross description: . The specimen is received in formalin, labeled "Karel Villanueva, right great toe" is a 4.7 x 3.7 x 3.5 cm amputated digit consistent with great toe remarkable for sherley-ungual ulcerated/areas of hemorrhage ranging from 0.2-1 cm involving 45% of the periungual area. The ulcerated areas come to within 1.5 cm of the otherwise viable skin soft tissue and bone margins. The skin soft tissue and bone margins are inked black. Focal softening of the bone and cystic possibly necrotic areas underlying the ulcerated area is noted. Hardware Installation Coordinator sections A1 shave decalcified bone margin A2 decalcified bone underlying ulcerated areas A3 soft tissue ulcerated areas ([facility]; 02/02/2021) DIANNA/DIANNA 02/02/2021 1733 Local . 02 Pathologist provided ICD-10: M86.171, M86.671, L98.499, L03.031 . 02 CPT . 786621, [id number] Specimen Comment: A courtesy copy of this report has been sent to [phone], [phone] Specimen Comment: [id number], Specimen Comment: Report sent to ,DR PANCHAL / DR HOLLIS Specimen Comment: Report sent to Specimen Comment: A duplicate report has been generated due to demographic updates. Performed at: 01 [facility] [place] [id number] [facility] [address], [place] [id number] MD Rodriguez Crawford MD Phone: [phone] Performed at: 02 [facility] [address] [place], [place] [id number] MD Anjum Anne MD Phone: [phone]
== END 2021-02-01 13:50 | disposition home or self-care (01) | DRG 504 ==
LOC: 4 NORTH 21:21
PROVIDERS: ADMIT Internal Medicine; ATTEND Internal Medicine
PROC: 0Y6P0Z3 Detachment at Right 1st Toe, Low, Open Approach (ICD-10-PCS; principal; 2021-01-31 07:00)
DX: M86.8X6 Other osteomyelitis, lower leg (principal); L02.611 Cutaneous abscess of right foot; L03.115 Cellulitis of right lower limb; I96 Gangrene, not elsewhere classified; E78.5 Hyperlipidemia, unspecified; F17.210 Nicotine dependence, cigarettes, uncomplicated; G43.909 Migraine, unspecified, not intractable, without status migrainosus; G89.29 Other chronic pain; I10 Essential (primary) hypertension; J44.9 Chronic obstructive pulmonary disease, unspecified; Z82.49 Family history of ischemic heart disease and other diseases of the circulatory system; Z86.73 Personal history of transient ischemic attack (TIA), and cerebral infarction without residual deficits; M19.90 Unspecified osteoarthritis, unspecified site; Z20.822 Contact with and (suspected) exposure to COVID-19
CPT/HCPCS: 36415; 80048; 80053; 80202; 82550; 85025; 85027; 85651; 86140; 87071; 87075; 87077; 87426; 88305; 88311; A4930; A6402; A6443; A6449; A6452; J0690; J0878; J2270; J2405; J2543; J2704; J3010; J3370; J7040; J7050; U0003; U0005; G0378; J7030